=== PATIENT | male | born 2000 | race American Indian/Alaskan Native ===

== ENCOUNTER 2023-09-03 20:43 | Emergency (ER) | payer SELFPAY ==
[~2023-09-03] VITALS: Ht 172.7 cm; Wt 172.7 kg
[2023-09-03 20:50] VITALS: TEMP 98.4
[2023-09-03] MEDS ORDERED: ZOFRAN 4MG T4 MG/TAB PO (21:41)
[2023-09-03] MEDS ORDERED: Home Ondansetron ODT 4 MG #2 ODT/PACK PO ONE (21:45)
[2023-09-03 23:06] VITALS: BP 144/85; PULSE 62
== END 2023-09-03 23:06 | disposition home or self-care (01) ==
LOC: COL.ER 20:43
DX: R11.2 Nausea with vomiting, unspecified (principal)